=== PATIENT | female | born 1955 | race Caucasian/White ===

== ENCOUNTER 2021-03-06 06:26 | Outpatient (REF) | payer MEDICARE, SELFPAY ==
[2021-03-06 11:12] LABS: MANUAL DIFF FLAG NO
[2021-03-06 11:42] LABS: Basophils Percent Auto 0.7 % (0-2); Eosinophils Absolute Auto 0.2 X10*3/uL (0.0-0.4); Hematocrit 36.7 % (37-47); Imm Gran Abs Auto 0.01 X10*3/uL (0.00-0.03); Imm Gran Pct Auto 0.2 % (0.0-0.4); Lymphocytes Absolute Auto 1.2 X10*3/uL (1.2-4.9); Lymphocytes Percent Auto 25.8 % (20-40); Mean Corpuscular HGB Conc 32.7 g/dl (31.0-35.0); Mean Corpuscular Hemoglobin 28.7 pg (27.0-33.0); Mean Corpuscular Volume 87.8 fL (80-98); Mean Platelet Volume 11.2 fL (9.4-12.3); Monocytes Absolute Auto 0.5 X10*3/uL (0.1-1.2); Monocytes Percent Auto 10.1 % (2-11); Neutrophils Absolute Auto 2.6 X10*3/uL (2.0-8.3); Neutrophils Percent Auto 59.2 % (45-73); Platelet Count 221 X10*3/uL (160-400); Red Blood Count 4.18 X10*6/uL (4.20-5.50); White Blood Count 4.5 X10*3/uL (4.8-10.8)
[2021-03-06 12:00] LABS: Alanine Aminotransferase 19 U/L (0-31); Albumin Level 4.3 g/dL (3.5-5.0); Alkaline Phosphatase 59 U/L (39-117); Anion Gap 13 (12-20); Aspartate Amino Transferase 21 U/L (5-31); Bilirubin Total 0.6 mg/dL (0.0-1.0); Blood Urea Nitrogen 15 mg/dL (9-16); Calcium 9.2 mg/dL (8.4-10.2); Carbon Dioxide 25 mmol/L (22-29); Chloride 107 mmol/L (96-108); Cholesterol 232 mg/dL; Estimated Glomerular Filt Rate > 60; Glucose Fasting 82 mg/dL (60-99); HDL Cholesterol 94 mg/dL; LDL Cholesterol Calculated 123 mg/dl; Potassium 3.7 mmol/L (3.3-5.1); Sodium 141 mmol/L (135-145); Total Protein 6.8 g/dL (6.5-8.0); Triglycerides 79 mg/dL
[2021-03-06 12:15] LABS: Vitamin D 25-OH Total 46.1 ng/mL (>30)
== END 2021-03-06 06:27 | disposition home or self-care (01) ==
LOC: HO.HMGCLDS 06:26
PROVIDERS: PCP Internal Medicine; Visit Provider Internal Medicine
DX: I10 Essential (primary) hypertension (principal); K21.9 Gastro-esophageal reflux disease without esophagitis; E78.00 Pure hypercholesterolemia, unspecified
CPT/HCPCS: 36415; 80053; 80061; 82306; 85025

== ENCOUNTER 2021-05-06 09:00 | Outpatient (REF) | payer MEDICARE, SELFPAY ==
--- NOTE | ~2021-05-06 | MM_ITS ---
EXAMINATION: BONE DENSITOMETRY CLINICAL INDICATION: Screening for osteoporosis. COMPARISON: Previous BD dated 02/21/2015 and baseline BD dated 10/12/2005. TECHNIQUE: Using a [employer] DXA System (software version: 13.1) manufactured by [employer], dual-energy x-ray absorptiometry was performed of the lumbar spine and left hip. The images are of good technical quality. Summary results are attached. FINDINGS: AP SPINE L1-L4: Current: BMD 0.892 g/cm2, Z-score -0.2, T-score -2.4, osteopenia, 0.6% decrease from previous, 11.5% decrease from baseline (<5% change is not significant). Prior: BMD 0.897 g/cm2. Baseline: BMD 1.008 g/cm2. LEFT FEMUR, NECK: Current: BMD 0.720 g/cm2, Z-score -0.4, T-score -2.3, osteopenia. Prior: BMD 0.767 g/cm2. Baseline: BMD 0.791 g/cm2. LEFT FEMUR, TOTAL: Current: BMD 0.640 g/cm2, Z-score -1.2, T-score -2.9, osteoporosis, 7.2% decrease from previous, 17.6% decrease from baseline (<5% change is not significant). Prior: BMD 0.690 g/cm2. Baseline: BMD 0.777 g/cm2. IDENTIFIED RISK FACTORS: Early menopause, secondary osteoporosis. HISTORY OF FRACTURE: None listed. MEDICATIONS: Calcium or multivitamins. MM/XR DEXA axial skeleton IMPRESSION: 1. DIAGNOSIS: Osteoporosis based on the lowest T-score value of -2.9 in the total femur applying World Health Organization criteria. 2. 10-YEAR FRACTURE RISK PREDICTION, FRAX: Major osteoporotic fracture (clinical spine, forearm, hip or shoulder) 10.8%. Hip fracture 2.3%. 3. Treatment Recommendations: NOF guidelines recommend consideration for treatment in postmenopausal women and men age 50 and older presenting with the following: -A hip or vertebral (clinical or morphometric) fracture. -T-score less than or equal to -2.5 at the femoral neck or spine after appropriate evaluation to exclude secondary causes. -Low bone mass at the hip or spine and a 10-year fracture probability by FRAX of greater than or equal to 3% for hip fracture or greater than or equal to 20% for major osteoporotic fracture based on the [place] adapted WHO algorithm. 4. Other Recommendations: All treatment decisions require clinical judgment and consideration of individual patient factors, including patient preferences, comorbidities, previous drug use, risk factors not captured in the FRAX model (e.g. frailty, falls, vitamin D deficiency, increased bone turnover, interval significant decline in bone density) and possible under or overestimation of fracture risk by FRAX. Additional medical evaluation for secondary cause of low bone mineral density may be appropriate. FUTURE SCAN RECOMMENDATION: People with diagnosed cases of osteoporosis or at high risk for fracture should have regular bone mineral density tests. For patients eligible for Medicare, routine testing is allowed once every 2 years. The testing frequency can be increased to one year for patients who have rapidly progressing disease, those who are receiving or discontinuing medical therapy to restore bone mass, or have additional risk factors.
--- NOTE | ~2021-05-06 | MM_ITS ---
EXAMINATION: MM SCREENING DIGITAL BREAST TOMOSYNTHESIS, BILATERAL CLINICAL INFORMATION: Screening. Asymptomatic. The lifetime risk of breast cancer based on the Tyrer-Cuzick Model is 8%. COMPARISON: Mammography: 03/13/2019, 03/04/2018, 01/08/2017 TECHNIQUE: Digital breast tomosynthesis is performed in both the craniocaudal and mediolateral oblique views along with computer-aided detection (CAD). Synthesized 2D images are generated from the tomosynthesis. FINDINGS: There are scattered areas of fibroglandular density (ACR BI-RADS breast composition Category b). There are no significant masses, abnormal calcifications, or other abnormalities. Parenchymal pattern is similar to prior studies. The axilla and skin contours are unremarkable. MM/MM tomosynthesis screening BI IMPRESSION: No mammographic evidence of malignancy. ASSESSMENT: BI-RADS 1: Negative RECOMMENDATION: Routine annual mammography screening. This patient's information was entered into a reminder system with a target due date for their next mammogram.
== END 2021-05-06 09:01 | disposition home or self-care (01) ==
LOC: HO.MAMMO 09:00
PROVIDERS: PCP Internal Medicine; Visit Provider Internal Medicine
DX: Z12.31 Encounter for screening mammogram for malignant neoplasm of breast (principal); Z13.820 Encounter for screening for osteoporosis; M81.0 Age-related osteoporosis without current pathological fracture; M85.80 Other specified disorders of bone density and structure, unspecified site; Z79.899 Other long term (current) drug therapy; Z78.0 Asymptomatic menopausal state
CPT/HCPCS: 77063; 77067; 77080

== ENCOUNTER 2021-10-15 09:21 | Outpatient (REF) | payer MEDICARE, SELFPAY ==
[2021-10-15 10:30] LABS: MANUAL DIFF FLAG NO
[2021-10-15 10:34] LABS: Basophils Absolute Auto 0.1 X10*3/uL (0.0-0.2); Basophils Percent Auto 1.2 % (0-2); Eosinophils Absolute Auto 0.1 X10*3/uL (0.0-0.4); Eosinophils Percent Auto 3.1 % (0-4); Hematocrit 35.6 % (37.0-47.0); Hemoglobin 11.6 g/dl (12.0-16.0); Imm Gran Abs Auto 0.01 X10*3/uL (0.00-0.03); Imm Gran Pct Auto 0.2 % (0.0-0.4); Lymphocytes Absolute Auto 0.9 X10*3/uL (1.2-4.9); Lymphocytes Percent Auto 20.2 % (20-40); Mean Corpuscular HGB Conc 32.6 g/dl (31.0-35.0); Mean Corpuscular Hemoglobin 28.1 pg (27.0-33.0); Mean Corpuscular Volume 86.2 fL (80.0-98.0); Mean Platelet Volume 11.5 fL (9.4-12.3); Monocytes Absolute Auto 0.4 X10*3/uL (0.1-1.2); Neutrophils Absolute Auto 2.8 x10*3/uL (2.0-8.3); Neutrophils Percent Auto 66.3 % (45-73); Platelet Count 186 X10*3/uL (160-400); Red Blood Count 4.13 X10*6/uL (4.20-5.50); Red Cell Distribution Width 14.5 % (11.0-16.0); White Blood Count 4.2 X10*3/uL (4.8-10.8)
[2021-10-15 10:50] LABS: Alanine Aminotransferase 23 U/L (0-31); Albumin Level 4.3 g/dL (3.5-5.0); Alkaline Phosphatase 60 U/L (39-117); Anion Gap 10 (12-20); Aspartate Amino Transferase 21 U/L (5-31); Bilirubin Total 0.4 mg/dL (0.0-1.0); Blood Urea Nitrogen 17 mg/dL (9-16); C Reactive Protein 0.03 mg/dL (< or = 0.50); Calcium 9.4 mg/dL (8.4-10.2); Carbon Dioxide 27 mmol/L (22-29); Chloride 103 mmol/L (96-108); Estimated Glomerular Filt Rate > 60; Glucose Random 85 mg/dL (60-115); Potassium 4.1 mmol/L (3.3-5.1); Sodium 136 mmol/L (135-145); Total Protein 6.7 g/dL (6.5-8.0)
== END 2021-10-15 09:22 | disposition home or self-care (01) ==
LOC: HO.10HDL 09:21
PROVIDERS: Visit Provider Internal Medicine
DX: R19.7 Diarrhea, unspecified (principal); I10 Essential (primary) hypertension; K21.9 Gastro-esophageal reflux disease without esophagitis
CPT/HCPCS: 36415; 80053; 85025; 86140

== ENCOUNTER 2022-02-18 09:39 | Outpatient (REF) | payer MEDICARE, SELFPAY ==
--- NOTE | ~2022-02-18 | XR_ITS ---
EXAMINATION: XR THORACIC SPINE CLINICAL INFORMATION: Pain COMPARISON: None TECHNIQUE: 3 views of the thoracic spine were obtained. FINDINGS: There is slight increased thoracic kyphosis. Bone alignment is otherwise normal. No fracture or dislocation is seen. There is multilevel degenerative spondylosis and degenerative disc disease of the mid and lower thoracic spine. Paraspinal soft tissues are normal. XR/XR thoracic spine 3V IMPRESSION: Slight increased thoracic kyphosis and multilevel degenerative changes of the mid and lower thoracic spine. No fracture.
--- NOTE | ~2022-02-18 | XR_ITS ---
EXAMINATION: XR CERVICAL SPINE CLINICAL INFORMATION: Neck pain COMPARISON: Previous exam January 2019 TECHNIQUE: 3 views of the cervical spine were obtained. FINDINGS: Bone alignment is normal. No fracture or dislocation is seen. There is mild degenerative spondylosis at CC 4 5 and C5-C6. There is mild disc space narrowing at C5-C6. Neural foramen are patent. There are surgical clips anterior to the C6 vertebral body. Prevertebral soft tissues are otherwise normal. There is bilateral carotid calcification. XR/XR cervical spine 4V IMPRESSION: Mild degenerative changes. Bilateral carotid calcification.
== END 2022-02-18 09:40 | disposition home or self-care (01) ==
LOC: HO.XRAY 09:39
PROVIDERS: PCP Internal Medicine; Visit Provider Internal Medicine
DX: M54.2 Cervicalgia (principal); M54.9 Dorsalgia, unspecified; M85.80 Other specified disorders of bone density and structure, unspecified site
CPT/HCPCS: 72050; 72072

== ENCOUNTER 2022-03-24 06:33 | Outpatient (REF) | payer MEDICARE, SELFPAY ==
[2022-03-24 11:28] LABS: MANUAL DIFF FLAG NO
[2022-03-24 11:31] LABS: Basophils Absolute Auto 0.1 X10*3/uL (0.0-0.2); Basophils Percent Auto 1.2 % (0-2); Eosinophils Absolute Auto 0.3 X10*3/uL (0.0-0.4); Eosinophils Percent Auto 6.2 % (0-4); Hematocrit 35.6 % (37.0-47.0); Hemoglobin 11.6 g/dl (12.0-16.0); Imm Gran Abs Auto 0.01 X10*3/uL (0.00-0.03); Imm Gran Pct Auto 0.2 % (0.0-0.4); Lymphocytes Absolute Auto 1.1 X10*3/uL (1.2-4.9); Lymphocytes Percent Auto 25.2 % (20-40); Mean Corpuscular HGB Conc 32.6 g/dl (31.0-35.0); Mean Corpuscular Hemoglobin 28.6 pg (27.0-33.0); Mean Corpuscular Volume 87.7 fL (80.0-98.0); Mean Platelet Volume 11.5 fL (9.4-12.3); Monocytes Absolute Auto 0.4 X10*3/uL (0.1-1.2); Neutrophils Absolute Auto 2.4 x10*3/uL (2.0-8.3); Neutrophils Percent Auto 57.2 % (45-73); Platelet Count 198 X10*3/uL (160-400); Red Blood Count 4.06 X10*6/uL (4.20-5.50); White Blood Count 4.2 X10*3/uL (4.8-10.8)
[2022-03-24 12:21] LABS: Alanine Aminotransferase 25 U/L (0-31); Albumin Level 4.2 g/dL (3.5-5.0); Alkaline Phosphatase 58 U/L (39-117); Anion Gap 10 (12-20); Aspartate Amino Transferase 22 U/L (5-31); Bilirubin Total 0.4 mg/dL (0.0-1.0); Blood Urea Nitrogen 24 mg/dL (9-16); Carbon Dioxide 27 mmol/L (22-29); Chloride 107 mmol/L (96-108); Cholesterol 233 mg/dL; Estimated Glomerular Filt Rate > 60; Glucose Fasting 88 mg/dL (60-99); HDL Cholesterol 88 mg/dL; LDL Cholesterol Calculated 135 mg/dl; Sodium 140 mmol/L (135-145); Total Protein 6.6 g/dL (6.5-8.0); Triglycerides 53 mg/dL
== END 2022-03-24 06:34 | disposition home or self-care (01) ==
LOC: HO.HMGCLDS 06:33
PROVIDERS: Visit Provider Internal Medicine
DX: I10 Essential (primary) hypertension (principal); K21.9 Gastro-esophageal reflux disease without esophagitis; E78.00 Pure hypercholesterolemia, unspecified
CPT/HCPCS: 36415; 80053; 80061; 85025

== ENCOUNTER 2022-05-11 08:13 | Outpatient (REF) | payer MEDICARE, SELFPAY ==
--- NOTE | ~2022-05-11 | MM_ITS ---
EXAMINATION: MM SCREENING DIGITAL BREAST TOMOSYNTHESIS, BILATERAL CLINICAL INFORMATION: Screening. Asymptomatic. The lifetime risk of breast cancer based on the Tyrer-Cuzick Model is 8%. COMPARISON: Mammography: 05/06/2021, 03/13/2019, 03/04/2018 TECHNIQUE: Digital breast tomosynthesis is performed in both the craniocaudal and mediolateral oblique views along with computer-aided detection (CAD). Synthesized 2D images are generated from the tomosynthesis. FINDINGS: There are scattered areas of fibroglandular density (ACR BI-RADS breast composition Category b). There are no significant masses, abnormal calcifications, or other abnormalities. Breast tissue composition borders on heterogeneously dense in the anterior breasts. Parenchymal pattern is similar to prior studies. No developing density. No significant changes. MM/MM tomosynthesis screening BI IMPRESSION: No mammographic evidence of malignancy. ASSESSMENT: BI-RADS 1: Negative RECOMMENDATION: Routine annual mammography screening. This patient's information was entered into a reminder system with a target due date for their next mammogram.
== END 2022-05-11 08:14 | disposition home or self-care (01) ==
LOC: HO.MAMMO 08:13
PROVIDERS: PCP Internal Medicine; Visit Provider Internal Medicine
DX: Z12.31 Encounter for screening mammogram for malignant neoplasm of breast (principal)
CPT/HCPCS: 77063; 77067

== ENCOUNTER 2022-06-09 06:48 | Outpatient (REF) | payer MEDICARE, SELFPAY ==
[2022-06-09 11:52] LABS: Cholesterol 241 mg/dL; HDL Cholesterol 87 mg/dL; LDL Cholesterol Calculated 143 mg/dl; Triglycerides 55 mg/dL
== END 2022-06-09 06:49 | disposition home or self-care (01) ==
LOC: HO.HMGCLDS 06:48
PROVIDERS: PCP Internal Medicine; Visit Provider Internal Medicine
DX: E78.00 Pure hypercholesterolemia, unspecified (principal)
CPT/HCPCS: 36415; 80061

== ENCOUNTER 2022-11-24 10:27 | Outpatient (REF) | payer MEDICARE, SELFPAY ==
[2022-11-24 11:59] LABS: Erythrocyte Sedimentation Rate 7 MM/HR (0-20)
[2022-11-24 12:12] LABS: Amylase 27 U/L (28-100); Anion Gap 13 (12-20); Blood Urea Nitrogen 15 mg/dL (9-16); C Reactive Protein < 0.04 mg/dL (< or = 0.50); Calcium 8.9 mg/dL (8.4-10.2); Carbon Dioxide 24 mmol/L (22-29); Chloride 108 mmol/L (96-108); Estimated Glomerular Filt Rate > 60; Glucose Random 94 mg/dL (60-115); Sodium 141 mmol/L (135-145)
[2022-11-24 12:25] LABS: Thyroid Stimulating Hormone 2.16 uIU/mL (0.32-4.0)
== END 2022-11-24 10:28 | disposition home or self-care (01) ==
LOC: HO.10HDL 10:27
PROVIDERS: Visit Provider Internal Medicine
DX: I10 Essential (primary) hypertension (principal); M35.00 Sjogren syndrome, unspecified; M19.90 Unspecified osteoarthritis, unspecified site
CPT/HCPCS: 36415; 80048; 82150; 82550; 84443; 85652; 86140

== ENCOUNTER 2022-12-16 09:51 | Outpatient (REF) | payer MEDICARE, SELFPAY | END 2022-12-16 09:52 | disposition home or self-care (01) | LOC: HO.HMGCLDS 09:51 | PROVIDERS: PCP Internal Medicine; Visit Provider Internal Medicine | DX: R74.8 Abnormal levels of other serum enzymes (principal) | CPT/HCPCS: 36415; 82550 ==

== ENCOUNTER 2023-02-14 09:23 | Outpatient (REF) | payer MEDICARE, SELFPAY ==
[2023-02-14 11:40] LABS: Alanine Aminotransferase 29 U/L (0-31); Albumin Level 4.1 g/dL (3.5-5.0); Alkaline Phosphatase 64 U/L (39-117); Anion Gap 12 (12-20); Aspartate Amino Transferase 27 U/L (5-31); Bilirubin Total 0.6 mg/dL (0.0-1.0); Blood Urea Nitrogen 20 mg/dL (9-16); C Reactive Protein < 0.10 mg/dL (< or = 0.50); Calcium 9.2 mg/dL (8.4-10.2); Carbon Dioxide 26 mmol/L (22-29); Chloride 106 mmol/L (96-108); Estimated Glomerular Filt Rate > 60; Glucose Random 95 mg/dL (60-115); Sodium 140 mmol/L (135-145); Total Protein 6.5 g/dL (6.5-8.0)
[2023-02-14 12:04] LABS: Erythrocyte Sedimentation Rate 9 MM/HR (0-20)
== END 2023-02-14 09:24 | disposition home or self-care (01) ==
LOC: HO.HMGCLDS 09:23
PROVIDERS: PCP Internal Medicine; Visit Provider Internal Medicine
DX: I10 Essential (primary) hypertension (principal); R74.8 Abnormal levels of other serum enzymes
CPT/HCPCS: 36415; 80053; 82550; 85652; 86140

== ENCOUNTER 2023-03-01 10:22 | Outpatient (REF) | payer MEDICARE, SELFPAY ==
--- NOTE | ~2023-03-01 | US_ITS ---
EXAMINATION: US ABDOMEN COMPLETE CLINICAL INFORMATION: Elevated CPK, hypertension. COMPARISON: None available. TECHNIQUE: Real-time imaging of the abdominal viscera. FINDINGS: PANCREAS: Normal. ABDOMINAL AORTA: Atherosclerosis of the abdominal aorta. INFERIOR VENA CAVA: Visualized portions are normal. LIVER: Normal. The liver is normal in size. The liver contour is normal. Parenchymal echogenicity is normal. No focal hepatic lesion. There is no intrahepatic biliary duct dilatation seen. GALLBLADDER: Normal. The gallbladder is physiologically distended without evidence of stones, sludge, polyps, wall thickening or pericholecystic fluid. COMMON BILE DUCT: Normal in caliber measuring 0.4 cm in diameter. RIGHT KIDNEY: Normal. No hydronephrosis. No renal calculi or focal parenchymal lesions. The kidney measures 9.9 cm in maximum dimension. LEFT KIDNEY: Normal. No hydronephrosis. No renal calculi or focal parenchymal lesions. The kidney measures 10.1 cm in maximum dimension. SPLEEN: Normal. The spleen measures 9.0 cm in maximum dimension. FREE FLUID: None. US/US abdomen complete IMPRESSION: Atherosclerosis of the abdominal aorta. Otherwise unremarkable abdominal ultrasound.
== END 2023-03-01 10:23 | disposition home or self-care (01) ==
LOC: HO.HMGCX 10:22
PROVIDERS: PCP Internal Medicine; Visit Provider Internal Medicine
DX: R74.8 Abnormal levels of other serum enzymes (principal)
CPT/HCPCS: 76700

== ENCOUNTER 2023-05-16 08:11 | Outpatient (REF) | payer MEDICARE, SELFPAY | END 2023-05-16 08:12 | disposition home or self-care (01) | LOC: HO.MAMMO 08:11 | PROVIDERS: PCP Internal Medicine; Visit Provider Internal Medicine | DX: Z12.31 Encounter for screening mammogram for malignant neoplasm of breast (principal) | CPT/HCPCS: 77063; 77067 ==

== ENCOUNTER → 2023-05-16 08:15 | Outpatient (BNV) | payer MEDICARE, SELFPAY | PROVIDERS: PCP Internal Medicine; Visit Provider Radiology Diagnostic Radiology | DX: Z12.31 Encounter for screening mammogram for malignant neoplasm of breast (principal) | CPT/HCPCS: 77063; 77067 ==

== ENCOUNTER 2023-06-22 09:46 | Outpatient (REF) | payer MEDICARE, SELFPAY ==
[2023-06-22 10:50] LABS: MANUAL DIFF FLAG NO
[2023-06-22 10:57] LABS: Basophils Absolute Auto 0.1 X10*3/uL (0.0-0.2); Basophils Percent Auto 0.9 % (0-2); Eosinophils Absolute Auto 0.2 X10*3/uL (0.0-0.4); Eosinophils Percent Auto 3.6 % (0-4); Hemoglobin 11.2 g/dl (12.0-16.0); Imm Gran Abs Auto 0.01 X10*3/uL (0.00-0.03); Imm Gran Pct Auto 0.2 % (0.0-0.4); Lymphocytes Absolute Auto 0.7 X10*3/uL (1.2-4.9); Lymphocytes Percent Auto 13.5 % (20-40); Mean Corpuscular HGB Conc 32.9 g/dl (31.0-35.0); Mean Corpuscular Hemoglobin 28.6 pg (27.0-33.0); Mean Platelet Volume 11.2 fL (9.4-12.3); Monocytes Absolute Auto 0.6 X10*3/uL (0.1-1.2); Monocytes Percent Auto 10.3 % (2-11); Neutrophils Absolute Auto 3.8 x10*3/uL (2.0-8.3); Neutrophils Percent Auto 71.5 % (45-73); Platelet Count 217 X10*3/uL (160-400); Red Blood Count 3.91 X10*6/uL (4.20-5.50); Red Cell Distribution Width 14.1 % (11.0-16.0); White Blood Count 5.4 X10*3/uL (4.8-10.8)
[2023-06-22 11:07] LABS: Alanine Aminotransferase 26 U/L (0-31); Albumin Level 4.3 g/dL (3.5-5.0); Alkaline Phosphatase 70 U/L (39-117); Anion Gap 13 (12-20); Aspartate Amino Transferase 24 U/L (5-31); Bilirubin Total 0.3 mg/dL (0.0-1.0); Blood Urea Nitrogen 17 mg/dL (9-16); Calcium 9.7 mg/dL (8.4-10.2); Carbon Dioxide 26 mmol/L (22-29); Chloride 102 mmol/L (96-108); Estimated Glomerular Filt Rate > 60; Glucose Random 96 mg/dL (60-115); Potassium 4.3 mmol/L (3.3-5.1); Sodium 137 mmol/L (135-145); Total Protein 7.1 g/dL (6.5-8.0)
[2023-06-22 11:13] LABS: Appearance Urine Clear; Color Urine Yellow; Glucose Urine UA Negative (Negative); Leukocyte Esterase Urine Negative (Negative); Nitrite Urine Negative (Negative); Specific Gravity - Urine <= 1.005 (1.005-1.025); Urine Blood Negative (Negative); Urine Ketones Negative (Negative); Urine Protein Negative (Neg-Trace)
== END 2023-06-22 09:47 | disposition home or self-care (01) ==
LOC: HO.10HDL 09:46
PROVIDERS: Visit Provider Internal Medicine
DX: I10 Essential (primary) hypertension (principal); K21.9 Gastro-esophageal reflux disease without esophagitis; R74.8 Abnormal levels of other serum enzymes
CPT/HCPCS: 36415; 80053; 81003; 82550; 85025

== ENCOUNTER 2023-10-13 10:33 | Outpatient (REF) | payer MEDICARE, SELFPAY ==
[2023-10-13 13:22] LABS: MANUAL DIFF FLAG NO
[2023-10-13 13:32] LABS: Basophils Percent Auto 0.6 % (0-2); Eosinophils Absolute Auto 0.1 X10*3/uL (0.0-0.4); Eosinophils Percent Auto 2.2 % (0-4); Hematocrit 33.4 % (37.0-47.0); Hemoglobin 11.2 g/dl (12.0-16.0); Imm Gran Abs Auto 0.01 X10*3/uL (0.00-0.03); Imm Gran Pct Auto 0.2 % (0.0-0.4); Lymphocytes Percent Auto 20.7 % (20-40); Mean Corpuscular HGB Conc 33.5 g/dl (31.0-35.0); Mean Corpuscular Hemoglobin 28.7 pg (27.0-33.0); Mean Corpuscular Volume 85.6 fL (80.0-98.0); Mean Platelet Volume 11.6 fL (9.4-12.3); Monocytes Absolute Auto 0.4 X10*3/uL (0.1-1.2); Monocytes Percent Auto 9.1 % (2-11); Neutrophils Absolute Auto 3.1 x10*3/uL (2.0-8.3); Neutrophils Percent Auto 67.2 % (45-73); Platelet Count 169 X10*3/uL (160-400); Red Cell Distribution Width 14.5 % (11.0-16.0); White Blood Count 4.6 X10*3/uL (4.8-10.8)
[2023-10-13 13:49] LABS: Anion Gap 12 (12-20); Blood Urea Nitrogen 20 mg/dL (9-16); C Reactive Protein < 0.04 mg/dL (< or = 0.50); Calcium 9.3 mg/dL (8.4-10.2); Carbon Dioxide 26 mmol/L (22-29); Chloride 100 mmol/L (96-108); Estimated Glomerular Filt Rate > 60; Glucose Random 99 mg/dL (60-115); Iron 65 mcg/dL (30-160); Percent Iron Saturation 18 % (15-50); Potassium 3.5 mmol/L (3.3-5.1); Sodium 134 mmol/L (135-145); Total Iron Binding Capacity 358 mcg/dL (228-428); Unsaturated Iron Binding 293 ug/dL
== END 2023-10-13 10:34 | disposition home or self-care (01) ==
LOC: HO.HMGCLDS 10:33
PROVIDERS: PCP Internal Medicine; Visit Provider Internal Medicine
DX: I10 Essential (primary) hypertension (principal); K21.9 Gastro-esophageal reflux disease without esophagitis; D64.9 Anemia, unspecified
CPT/HCPCS: 36415; 80048; 82550; 83540; 85025; 86140

== ENCOUNTER 2024-02-08 10:13 | Outpatient (REF) | payer MEDICARE, SELFPAY ==
[2024-02-08 13:08] LABS: MANUAL DIFF FLAG NO
[2024-02-08 13:11] LABS: White Blood Count 5.3 X10*3/uL (4.8-10.8)
[2024-02-08 13:12] LABS: Basophils Absolute Auto 0.1 X10*3/uL (0.0-0.2); Basophils Percent Auto 0.9 % (0-2); Eosinophils Absolute Auto 0.1 X10*3/uL (0.0-0.4); Eosinophils Percent Auto 1.9 % (0-4); Hematocrit 34.6 % (37.0-47.0); Hemoglobin 11.4 g/dl (12.0-16.0); Imm Gran Abs Auto 0.02 X10*3/uL (0.00-0.03); Imm Gran Pct Auto 0.4 % (0.0-0.4); Lymphocytes Absolute Auto 0.9 X10*3/uL (1.2-4.9); Lymphocytes Percent Auto 16.6 % (20-40); Mean Corpuscular HGB Conc 32.9 g/dl (31.0-35.0); Mean Corpuscular Hemoglobin 28.8 pg (27.0-33.0); Mean Corpuscular Volume 87.4 fL (80.0-98.0); Mean Platelet Volume 11.5 fL (9.4-12.3); Monocytes Absolute Auto 0.6 X10*3/uL (0.1-1.2); Monocytes Percent Auto 10.4 % (2-11); Neutrophils Absolute Auto 3.7 x10*3/uL (2.0-8.3); Neutrophils Percent Auto 69.8 % (45-73); Platelet Count 194 X10*3/uL (160-400); Red Blood Count 3.96 X10*6/uL (4.20-5.50); Red Cell Distribution Width 14.1 % (11.0-16.0)
[2024-02-08 13:27] LABS: Alanine Aminotransferase 22 U/L (0-31); Albumin Level 4.3 g/dL (3.5-5.0); Alkaline Phosphatase 62 U/L (39-117); Anion Gap 14 (12-20); Aspartate Amino Transferase 22 U/L (5-31); Bilirubin Total 0.4 mg/dL (0.0-1.0); Blood Urea Nitrogen 19 mg/dL (9-16); Calcium 9.4 mg/dL (8.4-10.2); Carbon Dioxide 25 mmol/L (22-29); Chloride 104 mmol/L (96-108); Cholesterol 233 mg/dL (<200); Estimated Glomerular Filt Rate > 60; Glucose Random 99 mg/dL (60-115); Potassium 4.1 mmol/L (3.3-5.1); Sodium 139 mmol/L (135-145); Total Protein 6.9 g/dL (6.5-8.0)
[2024-02-08 13:55] LABS: Erythrocyte Sedimentation Rate 6 MM/HR (0-20)
[2024-02-08 14:28] LABS: Carcinoembryonic Antigen < 1.73 ng/mL
== END 2024-02-08 10:14 | disposition home or self-care (01) ==
LOC: HO.10HDL 10:13
PROVIDERS: Visit Provider Internal Medicine
DX: I10 Essential (primary) hypertension (principal); K21.9 Gastro-esophageal reflux disease without esophagitis; I73.00 Raynaud's syndrome without gangrene; M85.80 Other specified disorders of bone density and structure, unspecified site; D64.9 Anemia, unspecified; R74.8 Abnormal levels of other serum enzymes
CPT/HCPCS: 36415; 80053; 82378; 82465; 82550; 85025; 85652

== ENCOUNTER 2024-05-18 08:07 | Outpatient (REF) | payer MEDICARE, SELFPAY ==
--- NOTE | ~2024-05-18 | MM_ITS ---
EXAMINATION: MM SCREENING DIGITAL BREAST TOMOSYNTHESIS, BILATERAL CLINICAL INFORMATION: Screening. Asymptomatic. COMPARISON: Mammography: Comparison is made with available priors TECHNIQUE: Digital breast mammography with tomosynthesis is performed in both the craniocaudal and mediolateral oblique views along with computer-aided detection (CAD). FINDINGS: The breasts are heterogeneously dense, which may obscure small masses (ACR BI-RADS breast composition Category c). There are no significant masses, abnormal calcifications, or other abnormalities. MM/MM tomosynthesis screening BI IMPRESSION: No mammographic evidence of malignancy. ASSESSMENT: BI-RADS BI-RADS 1 - Negative RECOMMENDATION: Routine annual mammography screening. 1 year F/U This examination should not preclude the clinical evaluation of a suspicious palpable abnormality. This patient's information was entered into a reminder system with a target due date for their next mammogram. Electronically signed by: Anya Mcmullen DO 05/31/2024 08:07 PM EDT
== END 2024-05-18 08:08 | disposition home or self-care (01) ==
LOC: HO.MAMMO 08:07
PROVIDERS: PCP Internal Medicine; Visit Provider Internal Medicine
DX: Z12.31 Encounter for screening mammogram for malignant neoplasm of breast (principal)
CPT/HCPCS: 77063; 77067

== ENCOUNTER → 2024-05-18 08:15 | Outpatient (BNV) | payer MEDICARE, SELFPAY | PROVIDERS: PCP Internal Medicine; Visit Provider Internal Medicine | DX: Z12.31 Encounter for screening mammogram for malignant neoplasm of breast (principal) | CPT/HCPCS: 77063; 77067 ==

== ENCOUNTER 2024-05-22 11:15 | Outpatient (REF) | payer MEDICARE, SELFPAY ==
[2024-05-22 13:16] LABS: MANUAL DIFF FLAG NO
[2024-05-22 13:20] LABS: Basophils Percent Auto 0.6 % (0-2); Eosinophils Absolute Auto 0.1 X10*3/uL (0.0-0.4); Eosinophils Percent Auto 1.6 % (0-4); Hematocrit 36.1 % (37.0-47.0); Hemoglobin 12.3 g/dl (12.0-16.0); Imm Gran Abs Auto 0.01 X10*3/uL (0.00-0.03); Imm Gran Pct Auto 0.2 % (0.0-0.4); Lymphocytes Absolute Auto 1.1 X10*3/uL (1.2-4.9); Lymphocytes Percent Auto 17.6 % (20-40); Mean Corpuscular HGB Conc 34.1 g/dl (31.0-35.0); Mean Corpuscular Hemoglobin 29.8 pg (27.0-33.0); Mean Corpuscular Volume 87.4 fL (80.0-98.0); Mean Platelet Volume 11.1 fL (9.4-12.3); Monocytes Absolute Auto 0.7 X10*3/uL (0.1-1.2); Monocytes Percent Auto 10.8 % (2-11); Neutrophils Absolute Auto 4.3 x10*3/uL (2.0-8.3); Neutrophils Percent Auto 69.2 % (45-73); Platelet Count 203 X10*3/uL (160-400); Red Blood Count 4.13 X10*6/uL (4.20-5.50); Red Cell Distribution Width 14.2 % (11.0-16.0); White Blood Count 6.2 X10*3/uL (4.8-10.8)
[2024-05-22 13:37] LABS: Alanine Aminotransferase 26 U/L (0-31); Albumin Level 4.4 g/dL (3.5-5.0); Alkaline Phosphatase 68 U/L (39-117); Anion Gap 13 (12-20); Aspartate Amino Transferase 25 U/L (5-31); Bilirubin Total 0.6 mg/dL (0.0-1.0); Blood Urea Nitrogen 19 mg/dL (9-16); Calcium 9.7 mg/dL (8.4-10.2); Carbon Dioxide 28 mmol/L (22-29); Chloride 103 mmol/L (96-108); Estimated Glomerular Filt Rate > 60; Glucose Random 99 mg/dL (60-115); Sodium 140 mmol/L (135-145); Total Protein 7.2 g/dL (6.5-8.0)
== END 2024-05-22 11:16 | disposition home or self-care (01) ==
LOC: HO.10HDL 11:15
PROVIDERS: Visit Provider Internal Medicine
DX: I10 Essential (primary) hypertension (principal); D64.9 Anemia, unspecified; R21 Rash and other nonspecific skin eruption
CPT/HCPCS: 36415; 80053; 82550; 85025

== ENCOUNTER 2025-02-07 10:54 | Outpatient (AMB) | payer MEDICARE, SELFPAY ==
--- NOTE | 2025-02-07 10:55 | A.OFFPC_ITS ---
Vital Signs 02/07/25 11:00 Height 5 ft 4 in Weight 107 lb BMI 18.4 BP 136/80 Blood Pressure Location Lt brachial Position Sitting Pulse 77 Pulse Source Pulse Oximeter Temp 98.7 F Temp Source Axillary Pulse Oximetry (%) 98 Oxygen Delivery Method Room Air Intake Visit Reasons: Routine - see comments Hr Associate Required: No Accompanied by: Self / Same As Patient Allergies Penicillins [PENICILLINS] Allergy (Severe, Verified 02/07/25 10:55) NAUSEA & VOMITING penicillin V Allergy (Unknown, Verified 02/07/25 10:55) Unknown Tobacco use date assessed: 02/07/25 Fall risk assessment: No Falls in past year Last assessed Fall Risk: 02/07/25 Dental Screening Dental Screen Date: 02/07/25 Did you have a dental visit in the last 12 months?: Yes Did you have a dental problem in the last 6 months where you did not have access to dental care?: No HPI HPI Comments History of Present Illness Details The patient is a 69 year old female with a past medical history of hypertension, anemia, GERD, raynauds, arthritis, osteopenia presenting for follow up. Last seen in May CV: on amlodipine 5mg daily GERD is stable on omeprazole Refuses colonoscopy, cologuard. Mammogram is due and ordered ROS CONSTITUTIONAL: Denies weight loss, fever and chills. HEENT: Denies changes in vision and hearing. RESPIRATORY: Denies SOB and cough. CV: Denies palpitations and CP GI: Denies abdominal pain, nausea, vomiting and diarrhea. : Denies dysuria and urinary frequency. MSK: Denies new myalgia and joint pain. SKIN: Denies rash and pruritus. NEUROLOGICAL: Denies headache PSYCHIATRIC: Denies recent changes in mood. PHYSICAL EXAM: GENERAL: Alert and oriented x 3. NAD EYES: EOMI. Anicteric. HENT: Moist mucous membranes. No scleral icterus. No cervical lymphadenopathy. LUNGS: Clear to auscultation bilaterally. CARDIOVASCULAR: Regular rate and rhythm. No murmur. No JVD. ABDOMEN: Soft, non-tender +bs EXTREMITIES: No edema. Non-tender. SKIN: No rashes or lesions. Warm. NEUROLOGIC: No focal neurological deficits. CN II-XII grossly intact PSYCHIATRIC: Cooperative. Appropriate mood and affect [facility] Family History Mother No problems noted. Father No problems noted. Social History Housing: House Patient Tobacco Use Status: Never used Tobacco e-Cigarette/Vaping Use: Never Used service: No Current occupational status: retired Cognitive needs: No Hearing needs: No Vision needs: Yes (rx glasses) Questionnaire PHQ-9 Over the last 2 weeks, how often have you been bothered by any of the following problems? 1. Little interest or pleasure in doing things: not at all 2. Feeling down, depressed, or hopeless: nearly every day 3. Trouble falling or staying asleep, or sleeping too much: not at all 4. Feeling tired or having little energy: not at all 5. Poor appetite or overeating: not at all 6. Feeling bad about yourself - or that you are a failure or have let yourself or your family down: not at all 7. Trouble concentrating on things, such as reading the newspaper or watching television: not at all 8. Moving or speaking so slowly that other people could have noticed. Or the opposite - being so fidgety or restless that you have been moving around a lot more than usual: not at all Depression Screening Interpretation: Negative Depression Screening Done: Yes 25246 - PHQ-9 Billing: Yes Source: Developed by Drs. Remigio Nava, Mary Shaikh, Lucas Erazo and colleagues, with an educational taryn from [employer]. Thrive Questionnaire Date Thrive assessed: 02/07/25 I am a: Patient Within the past 12 months, did the food you bought not last and you didn't have the money to get more?: Never true Within the past 12 months, did you worry whether your food would run out before you got money to buy more?: Never true Do you have trouble paying for medicines?: No Do you have trouble getting transportation to medical appointments?: No Do you have trouble paying your heating and electricity bill?: No Do you have trouble taking care of your child, family member or friend?: No Do you have trouble with day-to-day activities such as bathing, preparing meals, shopping, managing finances, etc.?: No Are you currently unemployed and looking for a job?: No Are you interested in more education?: No THRIVE Score: 0 AUDIT C Alcohol Use Questionnaire (AUDIT-C) 1. How often do you have a drink containing alcohol?: Monthly or less 2. How many drinks containing alcohol do you have on a typical day when you are drinking?: 1 or 2 3. How often do you have six or more drinks on one occasion?: Less than monthly Total Score: 2 RUTH-7 AMB Questionnaire RUTH-7 Date RUTH - 7 assessed: 02/07/25 Feeling nervous, anxious, or on edge: 3 = Nearly every day Not being able to stop or control worryin = Not at all Worrying too much about different things: 0 = Not at all Trouble relaxin = Not at all Being so restless that it is hard to sit still: 0 = Not at all Becoming easily annoyed or irritable: 0 = Not at all Feeling afraid as if something awful might happen: 0 = Not at all Total RUTH-7 score (0-4 normal; 5-9 mild; 10-14 moderate; 15-21 severe): 3 Source: Developed by Drs. Remigio Nava, Mary Shaikh, Lucas Erazo and colleagues, with an educational taryn from [employer]. Physical exam (Primary Care) Vital Signs: Last Vital Signs Temp 98.7 F 02/07/25 11:00 Pulse 77 02/07/25 11:00 BP 136/80 02/07/25 11:00 Pulse Ox 98 02/07/25 11:00 Oxygen Delivery Method Room Air 02/07/25 11:00 BMI result Body Mass Index 18.4 Tobacco/Smoking Status: Tobacco use Status Tobacco use date assessed 02/07/25 02/07/25 10:57 Patient Tobacco Use Status Never used Tobacco 02/07/25 10:57 e-Cigarette/Vaping Use Never Used 02/07/25 10:57 Depression Screening Interpretation: Negative Thrive Assessment: Date of Thrive Assessment Date Thrive assessed 02/07/25 02/07/25 10:57 Coding Level of Care Code New Pt Level 4 (39300) Complex EM visit Add On G2211 Diagnoses Underweight R63.6 Gastroesophageal reflux disease, unspecified whether esophagitis present K21.9 Esophagitis presence: esophagitis presence not specified Primary hypertension I10 Hypertension type: primary hypertension Anemia, unspecified type D64.9 Anemia type: unspecified type Additional Codes PHQ-9 - 20260 - PHQ-9 Billing: Yes ([id number]) Assessment & Plan Assessment & Plan (1) Underweight: Code(s): R63.6 - Underweight Category: Medical (2) GERD (gastroesophageal reflux disease): Code(s): K21.9 - Gastro-esophageal reflux disease without esophagitis Category: Medical Qualifiers: Esophagitis presence: esophagitis presence not specified Qualified Code(s): K21.9 - Gastro-esophageal reflux disease without esophagitis (3) Hypertension: Code(s): I10 - Essential (primary) hypertension Category: Medical Qualifiers: Hypertension type: primary hypertension Qualified Code(s): I10 - Essential (primary) hypertension (4) Anemia: Code(s): D64.9 - Anemia, unspecified Category: Medical Qualifiers: Anemia type: unspecified type Qualified Code(s): D64.9 - Anemia, unspecified Plan 69 year old female to establish care past medical surgical social reviewed mammo ordered she is underweight and has been anemic. she refuses colon cancer screening labs ordered. will follow up Orders: Orders Complete Blood Count Auto Diff 02/07/25 D64.9 - Anemia, unspecified, I10 - Essential (primary) hypertension, K21.9 - Gastro-esophageal reflux disease without esophagitis, R63.6 - Underweight, Z13.220 - Encounter for screening for lipoid disorders Comprehensive Met. Panel 02/07/25 D64.9 - Anemia, unspecified, I10 - Essential (primary) hypertension, K21.9 - Gastro-esophageal reflux disease without esophagitis, R63.6 - Underweight, Z13.220 - Encounter for screening for lipoid disorders Lipid Panel 02/07/25 D64.9 - Anemia, unspecified, I10 - Essential (primary) hypertension, K21.9 - Gastro-esophageal reflux disease without esophagitis, R63.6 - Underweight, Z13.220 - Encounter for screening for lipoid disorders Vitamin B12 and Folate 02/07/25 D64.9 - Anemia, unspecified, I10 - Essential (primary) hypertension, K21.9 - Gastro-esophageal reflux disease without esophagitis, R63.6 - Underweight, Z13.220 - Encounter for screening for lipoid disorders MM screening mammo BI 3 Months Z12.31 - Encounter for screening mammogram for malignant neoplasm of breast TSH reflex Free T4 02/07/25 D64.9 - Anemia, unspecified, I10 - Essential (primary) hypertension, K21.9 - Gastro-esophageal reflux disease without esophagitis, R63.6 - Underweight, Z13.220 - Encounter for screening for lipoid disorders
[2025-02-07 11:00] VITALS: BP 136/80; PULSE 77; TEMP 37.1; O2SAT 98; BMI 18.4
== END 2025-02-07 11:15 | disposition home or self-care (01) ==
LOC: HO.HMCHD 10:54
PROVIDERS: PCP Internal Medicine; Visit Provider Internal Medicine
DX: R63.6 Underweight (principal); K21.9 Gastro-esophageal reflux disease without esophagitis; I10 Essential (primary) hypertension; D64.9 Anemia, unspecified

== ENCOUNTER → 2025-02-07 10:54 | Outpatient (BNVA) | payer MEDICARE, SELFPAY | PROVIDERS: PCP Internal Medicine; Visit Provider Internal Medicine | DX: R63.6 Underweight (principal); K21.9 Gastro-esophageal reflux disease without esophagitis; I10 Essential (primary) hypertension; D64.9 Anemia, unspecified | CPT/HCPCS: 96127; 99202 ==

== ENCOUNTER 2025-02-07 11:18 | Outpatient (REF) | payer MEDICARE, SELFPAY ==
[2025-02-07 12:39] LABS: MANUAL DIFF FLAG NO
[2025-02-07 13:13] LABS: Basophils Percent Auto 0.6 % (0-2); Eosinophils Absolute Auto 0.1 X10*3/uL (0.0-0.4); Eosinophils Percent Auto 1.7 % (0-4); Hemoglobin 11.7 g/dl (12.0-16.0); Imm Gran Abs Auto 0.02 X10*3/uL (0.00-0.03); Imm Gran Pct Auto 0.4 % (0.0-0.4); Lymphocytes Absolute Auto 0.8 X10*3/uL (1.2-4.9); Lymphocytes Percent Auto 14.3 % (20-40); Mean Corpuscular HGB Conc 33.4 g/dl (31.0-35.0); Mean Corpuscular Hemoglobin 29.1 pg (27.0-33.0); Mean Corpuscular Volume 87.1 fL (80.0-98.0); Mean Platelet Volume 11.4 fL (9.4-12.3); Monocytes Absolute Auto 0.6 X10*3/uL (0.1-1.2); Monocytes Percent Auto 10.4 % (2-11); Neutrophils Absolute Auto 3.9 x10*3/uL (2.0-8.3); Neutrophils Percent Auto 72.6 % (45-73); Platelet Count 212 X10*3/uL (160-400); Red Blood Count 4.02 X10*6/uL (4.20-5.50); Red Cell Distribution Width 13.8 % (11.0-16.0); White Blood Count 5.4 X10*3/uL (4.8-10.8)
[2025-02-07 13:30] LABS: Alanine Aminotransferase 31 U/L (0-31); Albumin Level 4.6 g/dL (3.5-5.0); Alkaline Phosphatase 63 U/L (39-117); Anion Gap 11 (12-20); Aspartate Amino Transferase 27 U/L (5-31); Bilirubin Total 0.5 mg/dL (0.0-1.0); Blood Urea Nitrogen 19 mg/dL (9-16); Calcium 9.6 mg/dL (8.4-10.2); Carbon Dioxide 27 mmol/L (22-29); Chloride 104 mmol/L (96-108); Cholesterol 247 mg/dL (<200); Estimated Glomerular Filt Rate > 60; Glucose Random 100 mg/dL (60-115); HDL Cholesterol 113 mg/dL (>40); LDL Cholesterol Calculated 120 mg/dL (<100); Potassium 3.8 mmol/L (3.3-5.1); Sodium 138 mmol/L (135-145); Total Protein 7.3 g/dL (6.5-8.0); Triglycerides 71 mg/dL (<150)
[2025-02-07 13:53] LABS: Folate 18.4 ng/mL (> or = 4.0); Vitamin B12 1023 pg/mL (200-900)
== END 2025-02-07 11:19 | disposition home or self-care (01) ==
LOC: HO.10HDL 11:18
PROVIDERS: Visit Provider Internal Medicine
DX: R63.6 Underweight (principal); Z68.1 Body mass index [BMI] 19.9 or less, adult; K21.9 Gastro-esophageal reflux disease without esophagitis; I10 Essential (primary) hypertension; D64.9 Anemia, unspecified; Z13.220 Encounter for screening for lipoid disorders
CPT/HCPCS: 36415; 80053; 80061; 82607; 82746; 84443; 85025; 96127; 99202

== ENCOUNTER 2025-05-09 08:22 | Outpatient (AMB) | payer MEDICARE, SELFPAY ==
--- NOTE | 2025-05-09 08:24 | A.OFFPC_ITS ---
Vital Signs 05/09/25 08:29 Height 5 ft 4 in Weight 108 lb BMI 18.5 BP 168/100 H Blood Pressure Location Rt brachial Position Sitting Respiration 17 Pulse 81 Pulse Source Pulse Oximeter Temp 97.6 F Temp Source Temporal Artery Scan Pulse Oximetry (%) 100 Oxygen Delivery Method Room Air Intake Visit Reasons: Routine / Dr Koch [employer] Negative Required: No Accompanied by: Self / Same As Patient Allergies Penicillins (PENICILLINS) Allergy (Severe, Verified 05/09/25 08:24) NAUSEA & VOMITING penicillin V Allergy (Unknown, Verified 05/09/25 08:24) Unknown Tobacco use date assessed: 02/07/25 Fall risk assessment: No Falls in past year Last assessed Fall Risk: 05/09/25 Dental Screening Dental Screen Date: 02/07/25 Did you have a dental visit in the last 12 months?: Yes HPI HPI Comments History of Present Illness Details The patient is a 70-year-old female presenting with ongoing management of multiple chronic health conditions. Among them, Sj?gren's syndrome is notable, leading to severe xerostomia that the patient describes as ridiculously unbelievable dryness affecting her mouth and tongue. This has persisted for an extended period despite attempting multiple treatments including moisturizing agents, all reportedly unsuccessful. She mentions compromised dental health, involving frequent visits to the dentist due to fillings falling out, and reduced gustatory sense due to dryness. Approximately four rheumatologists were consulted, providing inconclusive test results and high financial costs, resulting in patient frustration. In addition, the patient reports experiencing Raynaud's phenomenon, which worsens in colder weather. The already low blood pressure necessitated cautious management with amlodipine 5 mg to prevent exacerbation of symptoms while a voiding hypotension, as discussed with Dr. Saez in previous consultations. Hypertension is another chronic issue for the patient, previously well-managed without changes or additions to antihypertensive therapy noted at this visit. The patient also has persistently elevated cholesterol levels, expressing concern over starting pharmacotherapy given her healthy dietary habits and low body mass index of 18.5. She is worried about potential side effects of statins but acknowledges understanding the risks of cardiovascular events with unmanaged hyperlipidemia. She further reports stress contributing to elevated blood pressure temporarily and describes a significant weight reduction from 180 pounds to 108 pounds attributed to stress and increased physical activity over time. This has reporte dly led her BMI to be categorized as underweight. 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 Father No problems noted. Social History Housing: House Patient Tobacco Use Status: Never used Tobacco e-Cigarette/Vaping Use: Never Used service: No Current occupational status: retired Cognitive needs: No Hearing needs: No Vision needs: Yes (rx glasses) Questionnaire PHQ-9 Over the last 2 weeks, how often have you been bothered by any of the following problems? 1. Little interest or pleasure in doing things: not at all 2. Feeling down, depressed, or hopeless: not at all 3. Trouble falling or staying asleep, or sleeping too much: not at all 4. Feeling tired or having little energy: not at all 5. Poor appetite or overeating: not at all 6. Feeling bad about yourself - or that you are a failure or have let yourself or your family down: not at all 7. Trouble concentrating on things, such as reading the newspaper or watching television: not at all 8. Moving or speaking so slowly that other people could have noticed. Or the opposite - being so fidgety or restless that you have been moving around a lot more than usual: not at all 9. Thoughts that you would be better off or of hurting yourself in some way: not at all Total score: 0 Depression Screening Interpretation: Negative Depression Screening Done: Yes 80225 - PHQ-9 Billing: Yes Source: Developed by Drs. Remigio Nava, Lucas Chun and colleagues, with an educational taryn from [employer]. Thrive Questionnaire Date Thrive assessed: 02/07/25 AUDIT C Alcohol Use Questionnaire (AUDIT-C) 1. How often do you have a drink containing alcohol?: 4 or more times a week 2. How many drinks containing alcohol do you have on a typical day when you are drinking?: 1 or 2 3. How often do you have six or more drinks on one occasion?: Never Total Score: 4 RUTH-7 AMB Questionnaire RUTH-7 Date RUTH - 7 assessed: 02/07/25 Source: Developed by Drs. Remigio Nava, Lucas Chun and colleagues, with an educational taryn from [employer]. Review of Systems Const Details: - Cardiovascular: Reports Raynaud's phenomenon worsening in cold weather. - Gastrointestinal: Reports xerostomia affecting taste and dental health. - Musculoskeletal: Denies significant musculoskeletal symptoms; reports regular walking for exercise. - General: Denies nausea, vomiting, headaches, chest pain, and shortness of breath. - Neurological: Denies neurological concerns; reports cold intolerance. - Dermatological: Reports cold-induced peripheral symptoms in fingers. All systems reviewed & are unremarkable except as noted in HPI and below Physical exam (Primary Care) Vital Signs: Last Vital Signs Temp 97.6 F 05/09/25 08:29 Pulse 81 05/09/25 08:29 Resp 17 05/09/25 08:29 BP 168/100 H 05/09/25 08:29 Pulse Ox 100 05/09/25 08:29 Oxygen Delivery Method Room Air 05/09/25 08:29 BMI result Body Mass Index 18.5 Tobacco/Smoking Status: Tobacco use Status Tobacco use date assessed 02/07/25 05/09/25 08:26 Patient Tobacco Use Status Never used Tobacco 05/09/25 08:26 e-Cigarette/Vaping Use Never Used 05/09/25 08:26 Depression Screening Interpretation: Negative Thrive Assessment: Date of Thrive Assessment Date Thrive assessed 02/07/25 05/09/25 08:26 Const Other: General: +Alert and oriented, Well nourished, No acute distress, Weight is on the lower side at 108 pounds, BMI is 18.5, which is underweight. Eye: Pupils are equal, round and reactive to light, Intact accommodation, Extraocular movements are intact, Normal conjunctiva, Vision unchanged. HENT: Normocephalic, Atraumatic, Tympanic membranes are clear, Normal hearing, Oral mucosa is dry due to Sj?gren's syndrome, No pharyngeal erythema, Ear canals patent. Respiratory: Lungs CTA bilaterally, No wheeze, Respirations are non-labored. Cardiovascular: Regular rate, Regular rhythm, S1 auscultated, S2 auscultated, No murmur, Good pulses equal in all extremities, Normal peripheral perfusion, No edema. Gastrointestinal: Soft, Non-tender, Non-distended, Normal bowel sounds, No organomegaly. Musculoskeletal: Normal range of motion, Normal strength, No tenderness, No swelling, No deformity, Normal gait. Integumentary: Warm, Dry, [place], Intact, Fingers affected by cold due to Raynaud's phenomenon. Neurologic: Alert, Oriented, Normal sensory, Normal motor function, No focal defects, Cranial Nerves II-XII are grossly intact, Normal deep tendon reflexes. Psychiatric: Cooperative, Appropriate mood & affect, Normal judgment. Coding Level of Care Code Est Pt Level 4 (86542) Complex EM visit Add On G2211 Diagnoses Hyperlipidemia, unspecified hyperlipidemia type E78.5 Hyperlipidemia type: unspecified Primary hypertension I10 Hypertension type: primary hypertension Underweight R63.6 Sjogren's syndrome, with unspecified organ involvement M35.00 Sjogren organ or system involvement: unspecified organ involvement Raynaud's disease without gangrene I73.00 Raynaud?s-associated gangrene presence: without gangrene Additional Codes PHQ-9 - 54442 - PHQ-9 Billing: Yes ([id number]) Assessment & Plan Assessment & Plan (1) Hyperlipidemia: Comment: - Initiated statin therapy with careful observation for potential side effects. Explained benefits regarding cardiovascular risk reduction. Code(s): E78.5 - Hyperlipidemia, unspecified Category: Medical Qualifiers: Hyperlipidemia type: unspecified Qualified Code(s): E78.5 - Hyperlipidemia, unspecified (2) Hypertension: Comment: - Blood pressure management remains stable with current therapeutic regimen. Monitor for changes, especially under stress conditions noted by the patient. Code(s): I10 - Essential (primary) hypertension Category: Medical Qualifiers: Hypertension type: primary hypertension Qualified Code(s): I10 - Essential (primary) hypertension (3) Underweight: Comment: - Underweight status addressed; encouraged nutritional assessment. Increased caloric intake and healthy eating habits discussed. Code(s): R63.6 - Underweight Category: Medical (4) Sjogren syndrome: Comment: - Manage persistent xerostomia. Patient reports minimal relief from current interventions. Discussed need for continued monitoring and potential exploration of additional therapies. (Declined going to a rehumatologist) Code(s): M35.00 - Sjogren syndrome, unspecified Category: Medical Qualifiers: Sjogren organ or system involvement: unspecified organ involvement Qualified Code(s): M35.00 - Sjogren syndrome, unspecified (5) Raynaud disease: Comment: - Continue with current dose of amlodipine. Reinforce non-pharmacological measures such as bundling up in cold weather to reduce symptoms. Code(s): I73.00 - Raynaud's syndrome without gangrene Category: Medical Qualifiers: Raynaud?s-associated gangrene presence: without gangrene Qualified Code(s): I73.00 - Raynaud's syndrome without gangrene Plan I discussed with the patient the benefits and necessity of addressing her chronic conditions with appropriate long-term management. Specifically, the importance of initiating a statin for elevated cholesterol levels was explained to mitigate cardiovascular risks. Additionally, we reviewed non-pharmacological strategies and the need for regular follow-up. The patient expressed concerns about potential side effects, and I assured her of the plan to closely monitor any adverse reactions. We agreed to reevaluate the treatment in six months unless earlier intervention is necessitated by symptom changes. Patient declined Cologuard, Colonoscopy and any further screening Medications: New atorvastatin (Lipitor) 40 mg PO BEDTIME 90 tabs 0RF 90 days Patient Instructions: - Continue amlodipine at current dosage. - Start the prescribed statin therapy as directed, report any muscle pain immediately. - Increase caloric intake and consider nutritional guidance for weight management. - Dress warmly in cold weather to manage Raynaud's phenomenon. - Follow-up as scheduled and contact us with any new concerns. - Attend scheduled mammogram appointment.
[2025-05-09 08:29] VITALS: BP 168/100; PULSE 81; RESP 17; TEMP 36.4; O2SAT 100; BMI 18.5
== END 2025-05-09 09:59 | disposition home or self-care (01) ==
LOC: HO.HMCHD 08:22
PROVIDERS: PCP Student in an Organized Health Care Education/Training Program; Visit Provider Student in an Organized Health Care Education/Training Program
DX: E78.5 Hyperlipidemia, unspecified (principal); I10 Essential (primary) hypertension; R63.6 Underweight; M35.00 Sjogren syndrome, unspecified; I73.00 Raynaud's syndrome without gangrene

== ENCOUNTER → 2025-05-09 08:22 | Outpatient (BNVA) | payer MEDICARE, SELFPAY | PROVIDERS: PCP Student in an Organized Health Care Education/Training Program; Visit Provider Student in an Organized Health Care Education/Training Program | DX: E78.5 Hyperlipidemia, unspecified (principal); I10 Essential (primary) hypertension; R63.6 Underweight; M35.00 Sjogren syndrome, unspecified; I73.00 Raynaud's syndrome without gangrene; Z79.899 Other long term (current) drug therapy; Z13.31 Encounter for screening for depression | CPT/HCPCS: 96127; 99212 ==

== ENCOUNTER 2025-05-27 07:47 | Outpatient (REF) | payer MEDICARE, SELFPAY | END 2025-05-27 07:48 | disposition home or self-care (01) | LOC: HO.MAMMO 07:47 | PROVIDERS: PCP Student in an Organized Health Care Education/Training Program; Visit Provider Student in an Organized Health Care Education/Training Program | DX: Z12.31 Encounter for screening mammogram for malignant neoplasm of breast (principal) | CPT/HCPCS: 77063; 77067 ==

== ENCOUNTER → 2025-05-27 08:00 | Outpatient (BNV) | payer MEDICARE, SELFPAY | PROVIDERS: PCP Student in an Organized Health Care Education/Training Program; Visit Provider Internal Medicine | DX: Z12.31 Encounter for screening mammogram for malignant neoplasm of breast (principal) | CPT/HCPCS: 77063; 77067 ==